=== PATIENT | female | born 1980 | race Caucasian/White ===

== ENCOUNTER 2016-11-11 07:44 | Emergency (ER) | payer OTHER ==
[2016-11-11 07:54] VITALS: BP 119/66; PULSE 92; RESP 16; TEMP 98.9
--- NOTE | 2016-11-11 08:14 | ED ---
URI HPI - General Chief Complaint: Upper Respiratory Infection Stated Complaint: FEVER, HEADACHE Time Seen by Provider: 11/11/16 08:07 Source: patient, family, RN notes reviewed Mode of arrival: ambulatory Limitations: no limitations - History of Present Illness Initial Comments: 36-year-old female presents emergency Department chief complaint cough and cold like symptoms. Patient states she's been sick since . Patient states that she feels very miserable and states that she was actually taken her son's antibiotics for strep. Patient went of sore throat, headache and fever. Patient states that she felt like chest congestion or chest but states his been minimal. Patient denies any nausea vomiting diarrhea constipation. She has no history of mono. Patient denies any ear pain, ear pressure. Patient states that she took Cipro and which has left her follow better at this time. - Related Data Home Medications Medication Instructions Recorded Confirmed Ibuprofen [Motrin] 400 mg PO Q6HR PRN 11/11/16 11/11/16 Previous Rx's Medication Instructions Recorded Amoxicillin/Potassium Clav 1 tab PO Q12HR #20 tab 11/11/16 [Augmentin 875-125 Tablet] Allergies Allergy/AdvReac Type Severity Reaction Status Date / Time No Known Allergies Allergy Verified 11/11/16 07:55 Review of Systems ROS Statement: Those systems with pertinent positive or pertinent negative responses have been documented in the HPI. ROS Other: All systems not noted in ROS Statement are negative. Past Medical History Past Medical History: No Reported History History of Any Multi-Drug Resistant Organisms: None Reported Past Surgical History: Section Past Psychological History: No Psychological Hx Reported Smoking Status: Former smoker Past Alcohol Use History: Occasional Past Drug Use History: None Reported General Exam Limitations: no limitations General appearance: alert, in no apparent distress Head exam: Present: atraumatic, normocephalic, normal inspection Eye exam: Present: normal appearance, PERRL, EOMI. Absent: scleral icterus, conjunctival injection, periorbital swelling ENT exam: Present: mucous membranes moist, TM's normal bilaterally, normal external ear exam. Absent: normal oropharynx (Erythematous posterior pharynx) Neck exam: Present: normal inspection, full ROM. Absent: tenderness, meningismus, lymphadenopathy Respiratory exam: Present: normal lung sounds bilaterally. Absent: respiratory distress, wheezes, rales, rhonchi, stridor Cardiovascular Exam: Present: regular rate, normal rhythm, normal heart sounds. Absent: systolic murmur, diastolic murmur, rubs, gallop, clicks GI/Abdominal exam: Present: soft, normal bowel sounds. Absent: distended, tenderness, guarding, rebound, rigid Neurological exam: Present: alert, oriented X3, CN II-XII intact, reflexes normal. Absent: motor sensory deficit Skin exam: Present: warm, dry, intact, normal color. Absent: rash Course Vital Signs 11/11/16 07:50 Temperature 98.9 F Pulse Rate 92 Respiratory 16 Rate Blood Pressure 119/66 O2 Sat by Pulse 94 L Oximetry Medical Decision Making - Medical Decision Making 36-year-old female presented for sore throat and URI symptoms. Patient's chest x-ray does not show any acute abnormality. Patient was treated for strep pharyngitis and URI symptoms. Return parameters discussed. Disposition Clinical Impression: Fever, Pharyngitis, URI (upper respiratory infection) Disposition: HOME SELF-CARE Condition: Stable Instructions: Pharyngitis (ED) Additional Instructions: Please return to the Emergency Department if symptoms worsen or any other concerns. Prescriptions: Amoxicillin/Potassium Clav [Augmentin 875-125 Tablet] 1 tab PO Q12HR #20 tab Referrals: Tolu Lyman MD [Primary Care Provider] - 1-2 days Time of Disposition: 08:32
--- NOTE | 2016-11-11 08:28 | XR ---
EXAMINATION TYPE: XR chest 2V DATE OF EXAM ORDERED: 11/11/2016 HISTORY: cough. REFERENCE: None. FINDINGS: The lungs are clear. Pleural spaces are clear. Heart size is normal. IMPRESSION: NORMAL CHEST.
== END 2016-11-11 08:39 | disposition home or self-care (01) ==
LOC: EC 07:44
DX: J06.9 Acute upper respiratory infection, unspecified (principal); J02.9 Acute pharyngitis, unspecified; Z87.891 Personal history of nicotine dependence
CPT/HCPCS: 71020; 99283